=== PATIENT | male | born 1995 | race Hispanic/Latino ===

== ENCOUNTER 2023-10-10 10:27 | Emergency (ER) | payer SELFPAY ==
[2023-10-10 10:48] VITALS: BP 128/91
--- NOTE | 2023-10-10 10:59 | ED.GENMED ---
History of Present Illness
General
Chief Complaint: Ear Problem
Source: patient and other (Language vp cardiovascular service line [id number])
Exam Limitations: none
Time Seen by Provider: 10/10/23 10:58
Nursing documentation reviewed up to this point in time: agreed with
Travel History
Have you had any contact with someone who has COVID-19?: No
Do you have any symptoms of coronavirus? Fever > 100 degrees, chills, cough, shortness of breath, sore throat, loss of taste or smell, muscle aches, or headache?: No
History of Present Illness
History of Present Illness:
28-year-old male with no past medical history states he has had bilateral ear pain, mild right ear pain but moderate left ear pain for the past 5 days. He also has a sore throat and a sore lump on the left side of his neck. He denies fever or
chills. Denies nausea or vomiting. He does not smoke or drink alcohol.
Past History
Past History
ED Past Medical History: None
ED Past Surgical History: None
Social History
Tobacco: Non-smoker
Alcohol: None
Personal: Single
Living: with family
Review of Systems
Review of Systems
Allergies reviewed?: Yes
All Other Systems: ROS reviewed and negative except as documented in HPI and ROS
Constitutional: Denies fever or chills
EENT: Reports sore throat and other (Your pain)
Respiratory: Denies cough
Cardiac: Denies chest pain
ABD/GI: Denies abdominal pain, nausea, vomiting, diarrhea or anorexia
Musculoskeletal: Reports no symptoms
Skin: Reports no symptoms
Neurological: Reports no symptoms
Phy Exam
Physical Exam
Physical Exam:
GENERAL: No acute distress. A&Ox3.
CONSTITUTIONAL: Afebrile.
EYES: Clear, conjunctivae normal
ENMT: moist mucus membranes, Pharynx nl, right TM and ear canal normal, left ear canal normal, TM is obstructed by cerumen, ear pain worse with tugging down on earlobe.
Neck: Supple, one small palpable tender left anterior cervical lymph node
RESPIRATORY: Regular respirations, nonlabored, lungs clear.
CARDIOVASCULAR: Regular rate and rhythm, no murmurs, no rubs.
GI: Soft, nontender
MUSCULOSKELETAL: Moves with ease. Well perfused.
SKIN: Warm, dry, normal
PSYCH: Normal mood and affect. Well kept, interactive and appropriate
NEUROLOGIC: Awake, alert and oriented. No focal neurological deficits
Course
Orders/Labs/Results
Orders:
Orders
10/10/23 11:27
Ibuprofen [Motrin] 600 mg PO NOW STA
10/10/23 11:29
Ibuprofen [Motrin] 600 mg .ROUTE .STK-MED ONE
10/10/23 11:33
Rapid Strep Group A Urgent
TRUONG Source: Throat/Pharynx
Specimen Description:
Date Specimen was Collected: 10/10/23
Time Specimen was Collected: 11:28
Throat Culture [Throat Culture, Comprehensive] Urgent
TRUONG Source: Throat/Pharynx
Specimen Description:
Date Specimen was Collected: 10/10/23
Time Specimen was Collected: 11:28
Vital Signs
Initial and Last Documented VS:
Initial Vital Signs
Temp Pulse Resp BP Pulse Ox
98.2 F 89 18 128/91 99
10/10/23 10:48 10/10/23 10:48 10/10/23 10:48 10/10/23 10:48 10/10/23 10:48
Last Documented Vital Signs
Temp Pulse Resp BP Pulse Ox
98.2 F 89 18 128/91 99
10/10/23 10:48 10/10/23 10:48 10/10/23 10:48 10/10/23 10:48 10/10/23 10:48
MDM/Problems Addressed
Differential Diagnosis Includes:
Otitis media, strep throat, viral versus bacterial pharyngitis
MDM/Problems Addressed:
28-year-old male with no past medical history states he has had bilateral ear pain, mild right ear pain but moderate left ear pain for the past 5 days. He also has a sore throat and a sore lump on the left side of his neck. He denies fever or
chills. Denies nausea or vomiting. He does not smoke or drink.
Afebrile, NAD
10/10/2023 1229 PM
Rapid strep neg
Since I cannot see the left eardrum due to cerumen impaction and he has a left tender cervical node and a sore throat I will treat him with an antibiotic for an ear infection and sore throat, throat culture is pending. He is a member of the [facility] and will follow-up as needed.
*Critical Care Note
Total Time (30-74mins, 75-104mins- exclusive of procedures): Not Applicable
ED Attending Note
-
Portions of this chart may have been created with voice recognition software.� Occasional wrong word or��sound alike� substitutions may have occurred due to the inherent limitations of voice recognition software.
Discharge Plan
Departure
Patient Disposition: Home (Routine Discharge)
Date of Disposition: 10/10/23
Time of Disposition: 12:30
Patient with high blood pressure during this ER visit?: No
Condition: Good
Discharge Problem:
Acute allergic otitis media, Pharyngitis
Instructions: Ear Infections (Otitis Media) in Adults (DC), Sore Throat - Adult
Prescriptions:
New
amoxicillin-pot clavulanate 875-125 mg tablet
1 tab PO BID Qty: 14 0RF
Referrals:
[facility] [Other] - Follow up in 5-7 days
NONE,* [Family Provider] -
Activity Restrictions/Additional Instructions:
As we discussed, Tylenol or ibuprofen as needed for pain.
I am treating you for an ear infection and a throat infection
I sent a prescription to your pharmacy for the antibiotic Augmentin to take twice a day for 7 days
Follow-up with the [facility] if you are not better by next week
Interventions
Interventions:
*Risk Screen - Suicide Last Done: 10/10/23 10:48
*General Assessment Last Done: 10/10/23 10:48
*Neglect/Abuse Screening Last Done: 10/10/23 10:48
ED- Fall Risk Assessment Last Done: 10/10/23 12:40
*ED COVID-19 Vaccine History Last Done: 10/10/23 11:52
*Nursing Disposition Last Done: 10/10/23 12:40
Discharge Date and Time
Discharge Date/Time: 10/10/23 12:40
[2023-10-10] MEDS: MOTRIN 600 MG PO (11:32)
== END 2023-10-10 12:40 | disposition home or self-care (01) ==
LOC: EMR 10:27
PROVIDERS: EMERGENCY PHYSICIAN Emergency Medicine
DX: H65.119 Acute and subacute allergic otitis media (mucoid) (sanguinous) (serous), unspecified ear (principal); J02.9 Acute pharyngitis, unspecified
CPT/HCPCS: 99283; 87070; 87880